=== PATIENT | female | born 1950 | race Caucasian/White ===

== ENCOUNTER → 2016-08-26 | Outpatient (CLI) | payer OTHER ==
[~2016-08-26] MED LIST: BLOOD PRESSURE MED PO; CLINDAMYCIN HC300 MG PO; COLACE PO; CRESTOR PO; FLUOXETINE HCL20 M1 PO; HYDROCHLOROTHIA25 MG PO; HYDROCHLOROTHIAZIDE PO; LIPITOR40 MG PO; LISINOPRIL PO; PROTONIX PO; PROZAC PO
--- NOTE | ~2016-08-26 | MY11 ---
[facility] A Service of [facility] RADIOLOGY TEXT RESULTS PATIENT: ZACHARIAH GARNER LOCATION: [facility] : 52 UNIT #: [id number] AGE: [address]: YANNI ARMENDARIZ SEX: F ORDER DR: [id number] [facility]. [place], [place] [address] [id number] O MR#: [id number] Acc #: [id number] NAME: ZACHARIAH GARNER : 1950 SEX: F STUDY DATE/TIME: 08/26/2016 10:37 UNIT: [facility] ROOM: STUDY DESCRIPTION: MY Mammogram Screening Dig Ricardo Attending Physician: Yanni Armendariz M.D. Primary Care Physician: Yanni Armendariz M.D. MEDICAL IMAGING REPORT This report is preliminary unless electronic signature is present EXAM Bilateral digital screening mammogram with CAD, 08/26/2016 INDICATION 66-year-old female for routine screening. No reported problems and no personal history of breast cancer. Family history positive in an aunt. No surgeries. TECHNIQUE CC and MLO views of the breasts were obtained and reviewed with an FDA-approved CAD device. COMPARISON 02/08/2015 FINDINGS The breast parenchyma is composed of scattered fibroglandular densities. The pattern is unchanged. Mild fibroglandular predominance in the upper outer right breast is stable. There is no new suspicious clustered microcalcifications. Benign calcifications are present. In the anterior left breast upper hemisphere best seen on the MLO view there is a tiny 3.0-4.0 mm nodular density present probably localizing laterally but not well visualized on the CC view. It is new and should be further evaluated with spot compression and true lateral views along with s targeted ultrasound if additional mammography views are inconclusive. This could represent a developing oil cyst but that is not of definitive. No other suspicious nodule identified. IMPRESSION There is a new 3.0-4.0 mm nodular density in the anterior upper hemisphere left breast. Additional views and potentially a breast ultrasound recommended for further assessment. [facility] A Service of [facility] RADIOLOGY TEXT RESULTS PATIENT: ZACHARIAH GARNER LOCATION: [facility] #: [id number] : 52 UNIT #: [id number] AGE: [address]: YANNI ARMENDARIZ SEX: F ORDER DR: Patients over the age of 40 are entered into a reminder system with target due date for the next mammogram. A result letter will also be sent to the patient. BIRADS 0 Incomplete: Need Additional Imaging Evaluation and/or Prior Mammograms for Comparison Dictated by... Hugh García M.D. THIS IS AN ELECTRONICALLY VERIFIED REPORT Hugh García M.D. at 08/28/2016 5:19 PM Chloé TD: 08/28/2016 09:31 JOB #: [id number] MEDICAL IMAGING REPORT Page 1 of 1 COPY
--- NOTE | ~2016-08-26 | BD1 ---
[facility] A Service [facility] RADIOLOGY TEXT RESULTS PATIENT: ZACHARIAH GARNER LOCATION: [facility] : 51 UNIT #: [id number] AGE: [address]: YANNI ARMENDARIZ SEX: F ORDER DR: [id number] [facility] [address] [place], [place] [address] [id number] O MR#: [id number] Acc #: [id number] NAME: ZACHARIAH GARNER : 1950 SEX: F STUDY DATE/TIME: 08/26/2016 10:35 UNIT: [facility] ROOM: STUDY DESCRIPTION: BD Dexa Bone Dens 1+ Site Attending Physician: Yanni Armendariz M.D. Primary Care Physician: Yanni Armendariz M.D. MEDICAL IMAGING REPORT This report is preliminary unless electronic signature is present EXAM DXA scan 08/26/2016 HISTORY Status post menopause with no hormone replacement therapy. Osteopenia. Hysterectomy at age 43 with removal of 1 ovary. Family history of breast carcinoma in aunt. Hypertension with blood pressure medication for 5 years. FINDINGS Bone mineral density in the lumbar spine from L1-L4 is 1.262 g/cm2, which is 2 standard deviations above the mean when compared to the young adult reference population, which is within the range of normal. This is 3.8 standard deviations above the mean when compared to the age-matched population. Bone mineral density in the left femoral neck was 0.807 g/cm2, which is 0.4 standard deviation below the mean when compared to the young adult reference population, which is within the range of normal. This is 1.2 standard deviations above the mean when compared to the age-matched population. IMPRESSION Bone mineral density in the lumbar spine and the left hip within the range of normal. Dictated by... Kd Hanson M.D. THIS IS AN ELECTRONICALLY VERIFIED REPORT Kd Hanson M.D. at 08/27/2016 8:30 AM [facility] A Service of [facility] RADIOLOGY TEXT RESULTS PATIENT: ZACHARIAH GARNER [facility] #[facility] [id number] : 52 UNIT #: [id number] AGE: [address]: YANNI ARMENDARIZ SEX: F ORDER DR: Marline TD: 08/26/2016 14:47 JOB #: [id number] MEDICAL IMAGING REPORT Page 1 of 1 COPY
== END | disposition home or self-care (01) ==
LOC: CWCC 10:01
DX: Z13.820 Encounter for screening for osteoporosis (principal); Z12.31 Encounter for screening mammogram for malignant neoplasm of breast; Z80.3 Family history of malignant neoplasm of breast; N95.9 Unspecified menopausal and perimenopausal disorder; N63 Unspecified lump in breast; I10 Essential (primary) hypertension; K21.9 Gastro-esophageal reflux disease without esophagitis; E78.5 Hyperlipidemia, unspecified; I70.0 Atherosclerosis of aorta; H81.10 Benign paroxysmal vertigo, unspecified ear; Z79.899 Other long term (current) drug therapy; J30.1 Allergic rhinitis due to pollen; D69.2 Other nonthrombocytopenic purpura; F33.0 Major depressive disorder, recurrent, mild; E66.01 Morbid (severe) obesity due to excess calories; Z82.49 Family history of ischemic heart disease and other diseases of the circulatory system; Z80.0 Family history of malignant neoplasm of digestive organs
CPT/HCPCS: 77080; G0202

== ENCOUNTER → 2016-09-10 | Outpatient (CLI) | payer OTHER ==
--- NOTE | ~2016-09-10 | US24 ---
[facility] A Service of [facility] RADIOLOGY TEXT RESULTS PATIENT: ZACHARIAH GARNER LOCATION: [facility] : 52 UNIT #: [id number] AGE: [address]: YANNI ARMENDARIZ SEX: F ORDER DR: [id number] [place], [place] [address] [id number] O MR#: [id number] Acc #: [id number] NAME: ZACHARIAH GARNER : 1950 SEX: F STUDY DATE/TIME: 09/10/2016 10:00 UNIT: [facility] ROOM: STUDY DESCRIPTION: US Breast Unilateral Attending Physician: Yanni Armendariz M.D. Primary Care Physician: Yanni Armendariz M.D. MEDICAL IMAGING REPORT This report is preliminary unless electronic signature is present EXAM Left breast ultrasound INDICATIONS Left breast mass. PROCEDURE Almanzar-scale and Doppler imaging of the left breast at the 1 and 2 o'clock positions in the area of mammographic concern. COMPARISON STUDIES Currently performed diagnostic mammogram. FINDINGS/IMPRESSION refer to separately dictated diagnostic mammogram for workup, findings and recommendations. Patients over the age of 40 are entered into a reminder system with target due date for the next mammogram. A result letter will also be sent to the patient. BIRADS: 2 Benign Finding Dictated by... Stevie Whittaker M.D. THIS IS AN ELECTRONICALLY VERIFIED REPORT Stevie Whittaker M.D. at 09/11/2016 7:02 AM EED/preethi TD: 09/10/2016 21:03 [facility] A Service of [facility] RADIOLOGY TEXT RESULTS PATIENT: ZACHARIAH GARNER LOCATION: [facility] : 52 UNIT #: [id number] AGE: [address]: YANNI ARMENDARIZ SEX: F ORDER DR: RANI #: [id number] MEDICAL IMAGING REPORT Page 1 of 1 COPY
--- NOTE | ~2016-09-10 | MY7 ---
[facility] A Service of [facility] RADIOLOGY TEXT RESULTS PATIENT: ZACHARIAH GARNER LOCATION: [facility] : 52 UNIT #: [id number] AGE: [address]: YANNI ARMENDARIZ SEX: F ORDER DR: [id number] [facility] [address] [place], [place] [address] [id number] O MR#: [id number] Acc #: [id number] NAME: ZACHARIAH GARNER : 1950 SEX: F STUDY DATE/TIME: 09/10/2016 9:16 UNIT: [facility] ROOM: STUDY DESCRIPTION: MY Mammogram Dx Dig Lt Attending Physician: Yanni Armendariz M.D. Primary Care Physician: Yanni Armendariz M.D. MEDICAL IMAGING REPORT This report is preliminary unless electronic signature is present EXAM Left digital diagnostic mammogram INDICATIONS Focal asymmetry in the left breast on screening mammogram. TECHNIQUE True lateral view of the left breast, spot compression views left breast in the CC and MLO projections. Images obtained on a digital mammography unit. COMPARISON STUDIES Screening mammogram 08/26/2016. FINDINGS Persistent well-circumscribed mass measuring approximately 2 mm in the anterior upper outer quadrant of the left breast. No associated microcalcification. There is no other mass seen. Concurrently performed left breast ultrasound demonstrates a 4 mm benign cyst in the left breast at the 1 o'clock position. There is a 3 mm hyperechoic, fairly superficial lesion in the left breast at the 2 o'clock position, 3 cm from the nipple. There is also a 1.3 cm, slightly hyperechoic region in the left breast at the 2 o'clock position, 5 cm from the nipple. These 2 areas are favored to represent benign lipomas. IMPRESSION Benign left diagnostic mammogram and ultrasound. Recommend patient continue with yearly screening. BIRADS: 2 Benign Finding. [facility] A Service of [facility] RADIOLOGY TEXT RESULTS PATIENT: ZACHARIAH GARNER LOCATION: [facility] : 52 UNIT #: [id number] AGE: [address]: YANNI ARMENDARIZ SEX: F ORDER DR: Patients over the age of 40 are entered into a reminder system with target due date for the next mammogram. A result letter will also be sent to the patient. Dictated by... Stevie Whittaker M.D. THIS IS AN ELECTRONICALLY VERIFIED REPORT Stevie Whittaker M.D. at 09/11/2016 7:02 AM EELalo/penelope TD: 09/10/2016 21:04 JOB #: [id number] MEDICAL IMAGING REPORT Page 1 of 1 COPY
== END | disposition home or self-care (01) ==
LOC: CMAM 09-08 14:30
DX: R92.8 Other abnormal and inconclusive findings on diagnostic imaging of breast (principal)
CPT/HCPCS: 76641; G0206